=== PATIENT | female | born 1995 | race Caucasian/White ===

== ENCOUNTER → 2017-04-03 | Outpatient (CLI) | payer OTHER ==
[~2017-04-03] MED LIST: CLARITIN-D 10 M1 T21 PO; DOXYCYCLINE HY100 M3 PO; FLAGYL500 MG PO; MULTIPLE VITAMI1 T17 PO; OCUFLOX 0.3% 5 M5 ML OPH; ULTRAM50 MG PO; ZITHROMAX250 MG PO; ZITHROMAX500 MG PO
[2017-04-08 00:05] LABS: GONOCOCCUS BY NAA Negative (Negative); TRICHOMONAS VAGINALIS BY NAA Negative (Negative)
== END | disposition home or self-care (01) ==
LOC: LAB 13:50
PROVIDERS: Pediatrics
DX: Z11.3 Encounter for screening for infections with a predominantly sexual mode of transmission (principal)

== ENCOUNTER 2019-03-17 22:09 | Emergency (ER) | payer MEDICAID ==
[~2019-03-17] VITALS: Ht 160 cm; Wt 74.8 kg
[2019-03-17 22:13] VITALS: BP 109/53
[2019-03-17 22:41] LABS: BILIRUBIN NEGATIVE (NEGATIVE); BLOOD NEGATIVE (NEGATIVE); CLARITY SL CLOUDY (CLEAR); COLOR YELLOW (YELLOW); GLUCOSE NEGATIVE (NEGATIVE); KETONE NEGATIVE (NEGATIVE); LEUKO ESTERASE NEGATIVE (NEGATIVE); NITRITE NEGATIVE (NEGATIVE); SPECIFIC GRAVITY 1.015 (1.005-1.030); UROBILINOGEN 0.2 E.U./dl (0.2-1.0)
[2019-03-17 22:54] LABS: EPITHELIAL CELLS TNTC
[2019-03-17 22:55] LABS: BACTERIA 2+
[2019-04-12] MEDS ORDERED: VIBRAMYCIN100 MG PO (17:54)
== END 2019-03-17 23:43 | disposition home or self-care (01) ==
LOC: ED 22:09
PROVIDERS: Nurse Practitioner Family
DX: A59.9 Trichomoniasis, unspecified (principal); F17.200 Nicotine dependence, unspecified, uncomplicated; Z11.3 Encounter for screening for infections with a predominantly sexual mode of transmission

== ENCOUNTER 2019-04-11 18:48 | Emergency (ER) | payer MEDICAID ==
[~2019-04-11] VITALS: Ht 160 cm; Wt 74.8 kg
[2019-04-11 18:49] VITALS: BP 113/79
[2019-04-11 19:19] LABS: BILIRUBIN NEGATIVE (NEGATIVE); BLOOD NEGATIVE (NEGATIVE); CLARITY SL CLOUDY (CLEAR); COLOR YELLOW (YELLOW); GLUCOSE NEGATIVE (NEGATIVE); KETONE NEGATIVE (NEGATIVE); LEUKO ESTERASE NEGATIVE (NEGATIVE); NITRITE NEGATIVE (NEGATIVE); PH 5.5 (5.0-9.0); SPECIFIC GRAVITY >= 1.030 (1.005-1.030); UROBILINOGEN 0.2 E.U./dl (0.2-1.0)
[2019-04-11] MEDS ORDERED: VIBRAMYCIN100 MG PO (19:52)
[2019-04-11 19:58] LABS: BACTERIA 1+; EPITHELIAL CELLS TNTC; MUCOUS TRACE; RBC 0-2 rbc/hpf (0-2); WBC 0-2 wbc/hpf (0-5)
[2019-04-12] MEDS ORDERED: VIBRAMYCIN100 MG PO (17:54)
== END 2019-04-11 20:07 | disposition home or self-care (01) ==
LOC: ED 18:48
PROVIDERS: Nurse Practitioner Family
DX: Z11.3 Encounter for screening for infections with a predominantly sexual mode of transmission (principal); Z88.1 Allergy status to other antibiotic agents

== ENCOUNTER 2020-01-03 18:00 | Emergency (ER) | payer OTHER ==
[~2020-01-03] VITALS: Ht 160 cm; Wt 68.0 kg
[~2020-01-03 18:00] MED LIST changes: +VIBRAMYCIN100 MG PO
[2020-01-03 18:22] VITALS: BP 106/60
[2020-01-03 20:20] LABS: BILIRUBIN NEGATIVE (NEGATIVE); BLOOD NEGATIVE (NEGATIVE); CLARITY SL CLOUDY (CLEAR); COLOR YELLOW (YELLOW); EPITHELIAL CELLS 20-25; GLUCOSE NEGATIVE (NEGATIVE); KETONE NEGATIVE (NEGATIVE); LEUKO ESTERASE NEGATIVE (NEGATIVE); MUCOUS 3+; NITRITE NEGATIVE (NEGATIVE); SPECIFIC GRAVITY 1.025 (1.005-1.030); UROBILINOGEN 0.2 E.U./dl (0.2-1.0)
[2020-01-03 20:21] LABS: BACTERIA 2+
[2020-01-03] MEDS ORDERED: FLAGYL500 MG PO (20:27)
[2020-01-06 00:05] LABS: GONOCOCCUS BY NAA Negative (Negative)
== END 2020-01-03 20:35 | disposition home or self-care (01) ==
LOC: ED 18:00
PROVIDERS: Nurse Practitioner Family
DX: Z20.2 Contact with and (suspected) exposure to infections with a predominantly sexual mode of transmission (principal); Z88.1 Allergy status to other antibiotic agents